=== PATIENT | male | born 1990 | race Caucasian/White ===

== ENCOUNTER 2020-08-05 22:48 | Emergency (ER) | payer OTHER ==
[2020-08-05 22:53] VITALS: BP 136/74; PULSE 110; TEMP 98; BMI 24.4
== END 2020-08-06 00:20 | disposition home or self-care (01) ==
LOC: JER 22:48
PROC: 0HQ0XZZ Repair Scalp Skin, External Approach (ICD-10-PCS; principal; 2020-08-05)
DX: S01.91XA Laceration without foreign body of unspecified part of head, initial encounter (principal)
CPT/HCPCS: 99282-25